=== PATIENT | female | born 1970 ===

== ENCOUNTER 2019-08-02 08:16 | Outpatient (CLI) | payer OTHER | END 2019-08-02 08:19 | disposition home or self-care (01) | LOC: RAD 08:16 | DX: M25.561 Pain in right knee (principal); M25.562 Pain in left knee ==

== ENCOUNTER → 2019-08-31 | Outpatient (CLI) | payer OTHER | END | disposition home or self-care (01) | LOC: MRI 08-22 14:15 → RAD 10:58 | DX: M25.531 Pain in right wrist (principal); M25.532 Pain in left wrist ==

== ENCOUNTER 2020-11-01 07:18 | Outpatient (CLI) | payer OTHER | END 2020-11-01 07:23 | disposition home or self-care (01) | LOC: LAB 07:18 | PROVIDERS: ATTEND General Practice | DX: D64.89 Other specified anemias (principal) ==